=== PATIENT | male | born 1990 | race Caucasian/White ===

== ENCOUNTER 2024-05-13 01:51 | Emergency (ER) | payer SELFPAY ==
[2024-05-13 02:04] VITALS: BMI 17.2
[2024-05-13 03:05] VITALS: BP 121/83; PULSE 110; RESP 16; TEMP 98.9
== END 2024-05-13 03:06 | disposition home or self-care (01) ==
LOC: JER 01:51
DX: R22.1 Localized swelling, mass and lump, neck (principal); F14.10 Cocaine abuse, uncomplicated
CPT/HCPCS: 99282-25